=== PATIENT | female | born 1965 | race Caucasian/White ===

== ENCOUNTER 2023-02-26 20:48 | Emergency (ER) | payer BC, SELFPAY ==
[2023-02-26 20:50] VITALS: BP 89/58; PULSE 125; RESP 15; TEMP 36.3; O2SAT 98
[2023-02-26 21:01] VITALS: BP 89/58
--- NOTE | 2023-02-26 22:21 | EX.ED.DYSGE1 ---
HPI History of Present Illness Chief Complaint: General Illness Informant: patient and spouse/S.O. Onset/Context/Timing Onset: Today and Yesterday Context: Gradual Onset Timing: Continuous Current Severity: Mild Maximum Severity: Mild Narrative Narrative: 57-year-old female in August of last year was diagnosed with stage IV breast cancer metastases. She started chemotherapy about 13 weeks ago and is now getting it weekly. Her last treatment was last Saturday. She spoke in a week the last 2 days. Said she has been eating and drinking well. No diarrhea. No dysuria. No fever. No chest pain. Today her and her were out to dinner since he felt fine when she went to get up from dinner she got up felt lightheaded and weak. She went to exit the restaurant when she got outside she had episode of nausea and vomiting. Says she is feeling improved now but just generally weak. Prior similar symptoms: No Recent Illness/Hospitalization: No PFSH PFSH Medical History (Updated 02/27/23 @ 00:[address] Bari Cueva MD) Cancer Depression Former smoker GERD (gastroesophageal reflux disease) Home Medications bupropion HCl 150 mg 24 hr tablet, extended release 150 mg PO DAILY 02/26/23 [History Last Taken Unknown] doxycycline monohydrate 40 mg capsule,immediate - delay release (Oracea) 40 mg PO DAILY 02/26/23 [History Last Taken Unknown] gabapentin 100 mg capsule 600 mg PO DAILY 02/26/23 [History Last Taken Unknown] promethazine 25 mg tablet 25 mg PO DAILY 02/26/23 [History Last Taken Unknown] Allergy/AdvReac Type Severity Reaction Status Date / Time No Known Allergies Allergy Verified 02/26/23 21:02 Social History Smoking Status: Former smoker ROS ROS ED ROS Narrative Weakness. Nausea vomiting. Review of Systems ROS Unobtainable: Denies due to encephalopathy Constitutional Constitutional ED: Denies chills or fever(s) Eyes Eyes: Denies blurry vision ENT ENT ED: Denies ear pain Cardiovascular Cardiovascular: Denies chest pain Respiratory/Chest Respiratory/Chest: Denies cough or dyspnea Gastrointestinal Gastrointestinal: Reports nausea and vomiting; Denies abdominal pain, constipation, diarrhea or melena Genitourinary Genitourinary ED: Denies dysuria or hematuria Musculoskeletal Musculoskeletal: Denies arthralgias Integumentary Denies abscess Neurologic Neurologic: Denies headache(s) Psychiatric Psychiatric: Denies anxiety Endocrine Endocrinology: Denies cold intolerance Hematologic/Lymphatic Hematologic/Lymphatic: Reports none Allergic/Immunologic Allergic/Immunologic ED: Denies mouth swelling or tongue swelling EXAM Physical Exam Narrative Exam Narrative: Well-appearing 57-year-old female. Initial blood pressure was 89/58. She does not look septic or toxic. She is afebrile temperature 97.4. Her pulse ox is 98. Pulse is elevated 125. H EENT exam mild dry mucous membranes. Otherwise unremarkable. Neck nontender no JVD no lymphadenopathy. Lungs clear to auscultation bilaterally. Heart tachycardic rate about 115 no murmur. Chest wall nontender. Abdomen soft nontender. No peritoneal signs. Moving all 4 extremities. 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 Dorsi plantarflexion intact. Calves are nontender without edema. Back nontender. Neurologically she is awake and alert with no focal motor deficits. She is sitting upright in bed and appears comfortable. at bedside. Const Vital Signs: 02/26/23 20:50 02/26/23 21:01 Temperature 97.4 F L Temperature Source Oral Pulse Rate 125 H Respiratory Rate 15 Blood Pressure 89/58 L 89/58 L Blood Pressure Mean 68 68 Pulse Ox 98 Oxygen Delivery Method Room Air Positive well nourished and well developed; Negative for cachectic, contractures or unkempt General Appearance ED: well developed and NAD; Negative for unkempt, cachectic, contractures, cyanotic, diaphoretic or pallor Nutritional Appearance: Negative for cachectic HEENT Reports dry mucous membranes; Denies moist mucous membranes Negative for trauma or tenderness Mouth ED: Yes dry mucous membranes Mouth: dry mucous membranes Eyes EOMs intact bilaterally General Eye ED: Negative for pale conjunctiva, scleral icterus or other Neck no lymphadenopathy, supple and no JVD General: Negative for tenderness Resp normal respiratory effort and clear to auscultation bilaterally Effort and Inspection: Negative for retractions Auscultation: Negative for rales, rhonchi or wheezes Cardio regular rhythm, S1 normal heart sound, S2 normal heart sound and no murmurs; Negative for regular rate Rate: tachycardic GI normal to inspection, nondistended, normoactive bowel sounds, non-tender, non-distended and no masses Inspection: Negative for abdominal distention Auscultation: normoactive bowel sounds Palpation: soft; Negative for tender or guarding Back/Spine no CVA tenderness General Back: Negative for CVA tenderness Cervical Spine: Negative for cervical spine tenderness Thoracic Spine / Upper Back: Negative for thoracic spinal tenderness Lumbar Spine / Lower Back: Negative for lumbar spinal tenderness Extremity normal to inspection General Extremety ED: Negative for edema or tenderness General Extremity: Negative for edema Neuro oriented x3 and CN's II-XII intact bilaterally Sensorium / Orientation: alert; Negative for orientation impaired Motor Exam: strength 5/5 throughout; Negative for general weakness Psych mental status grossly normal Appearance: Negative for unkempt Attitude: No agitated Skin no rashes or lesions noted and no wounds General Skin Exam: Negative for jaundice or pallor Lesions: No lesion noted Rashes: No rashes noted Trauma: Negative for abrasion Wounds: Negative for wounds noted MDM MDM MDM Narrative Medical decision making narrative: 57-year-old Aries patient felt weak presents with hypotension. Recently has not had nausea and vomiting except one episode tonight. Has not had diarrhea. States she has been taking in p.o. fluids. Denies any infectious symptoms. No fever. No significant cough or shortness of breath. No abdominal pain. No dysuria. She will undergo work-up. This may be chemo related versus infectious etiology versus other. Exam is benign. Repeat exam patient doing well at 12:30 PM. She is feeling better after IV fluids. Her exam is unchanged and benign. Her blood pressures improved. Currently is 112/53. Her orthostatic vital signs are negative. Standing her blood pressure is 118/78 she did become tachycardic. She walked to the bathroom earlier. Without difficulty. She and I and her discussed her test results. She is comfortable being discharged home. I spoke to her oncologist, Dr. Tyrone Jha. Both he and I are comfortable with her being discharged home he will follow her up as an outpatient. She knows to return if worse. History & Record Review Discussion w/independent historian: Patient and Family Lab Data Attestation: I reviewed the patient's lab results. Lab results narrative: CBC shows a white count 9.3. H&H of 13 and 38. Platelets 329. Electrolytes show a gap at 9. BUN and creatinine are 25 and 1.1. Liver enzymes are unremarkable. Urinalysis shows no white or red cells. No nitrites. 2+ bacteria. This will not be treated. Lactic acid is normal at 1.6.Chest x-ray is unremarkable. Left sided med port. Labs: Laboratory Results - last 24 hr 02/26/23 02/26/23 02/26/23 23:15 23:20 23:20 WBC 9.3 RBC 3.84 L Hgb 13.1 Hct 38.3 MCV 99.7 H MCH 34.1 H MCHC 34.2 RDW Std Deviation 61.0 H RDW Coeff of Lila 17.0 H Plt Count 329 MPV 8.9 Immature Gran % (Auto) 1.900 H Neut % (Auto) 89.3 H Lymph % (Auto) 5.4 L [place] % (Auto) 2.8 Eos % (Auto) 0.3 Baso % (Auto) 0.3 Absolute Neuts (auto) 8.3 H Absolute Lymphs (auto) 0.50 L Nucleated RBC % 0.2 Differential Comment SCANNED Sodium 136 Potassium 4.9 Chloride 100 Carbon Dioxide 27.0 Anion Gap 9 BUN 25 H Creatinine 1.16 H Estim Creat Clear Calc 52.68 Est GFR (MDRD) Af Amer 61 Est GFR (MDRD) Non-Af 51 L BUN/Creatinine Ratio 21.6 H Glucose 167 H Lactic Acid Calcium 10.7 H Total Bilirubin 0.80 AST 34 ALT 66 H Alkaline Phosphatase 105 Troponin I High Sens 70 H Total Protein 7.8 Albumin 4.0 Globulin 3.8 Albumin/Globulin Ratio 1.1 Urine Color Yellow Urine Clarity Clear Urine pH 6.0 Ur Specific Blaine 1.025 Urine Protein 100 H Urine Glucose (UA) Normal Urine Ketones 5 H Urine Occult Blood Negative Urine Nitrite Negative Urine Bilirubin 1 H Urine Urobilinogen 1 H Ur Leukocyte Esterase 25 H Urine RBC 0 SEEN Urine WBC 0-5 SEEN Ur Squamous Epith Cells 0-5 SEEN Urine Bacteria 2+ Hyaline Casts 0-5 SEEN Urine Mucus 0 SEEN 02/26/23 23:20 WBC RBC Hgb Hct MCV MCH MCHC RDW Std Deviation RDW Coeff of Lila Plt Count MPV Immature Gran % (Auto) Neut % (Auto) Lymph % (Auto) [place] % (Auto) Eos % (Auto) Baso % (Auto) Absolute Neuts (auto) Absolute Lymphs (auto) Nucleated RBC % Differential Comment Sodium Potassium Chloride Carbon Dioxide Anion Gap BUN Creatinine Estim Creat Clear Calc Est GFR (MDRD) Af Amer Est GFR (MDRD) Non-Af BUN/Creatinine Ratio Glucose Lactic Acid 1.6 Calcium Total Bilirubin AST ALT Alkaline Phosphatase Troponin I High Sens Total Protein Albumin Globulin Albumin/Globulin Ratio Urine Color Urine Clarity Urine pH Ur Specific [place]aine Urine Protein Urine Glucose (UA) Urine Ketones Urine Occult Blood Urine Nitrite Urine Bilirubin Urine Urobilinogen Ur Leukocyte Esterase Urine RBC Urine WBC Ur Squamous Epith Cells Urine Bacteria Hyaline Casts Urine Mucus Radiography Chest X-Ray - ED: 1 View, Read by ED Physician, Read by Radiologist, Heart, Lungs, Mediastinum, Bony Structures, No Acute Disease and Chronic Changes Diagnostic Testing: Clinical Impression(s) from Imaging Studies Chest X-Ray 02/26/23 22:40 IMPRESSION: 1. Tip of the left Alqpzk-g-Teay catheter in the mid right atrium near the IVC. Consider retracting 4 cm if thought to be indicated. 2. No acute intrathoracic abnormality. Electronically Signed: Shayy Harman MD at 23:39 EDT , Chest x-ray, portable, single view shows no acute abnormality. Reviewed by myself and the radiologist. Left sided med port. Rhythm Strip Rhythm Strip: Sinus Tach Rate: 110 Ectopy: None EKG Initial EKG: Attestation: I personally reviewed and interpreted this EKG as follows: Interpretation: Sinus Rhythm and No Acute Injury Pattern Comments: Sinus tachycardia rate 110. No acute signs of OR, ischemia or dysrhythmia. Discharge Plan Triage Chief Complaint: General Illness ED Provider: Bari Cueva Dx/Rx/DC Orders Clinical Impression: Transient hypotension, Nausea & vomiting, History of breast cancer, History of cancer chemotherapy Instructions: Dehydration Prescriptions: No Action promethazine 25 mg tablet 25 mg PO DAILY Label Comments: take 1 tablet by mouth every 6 hours if needed for nausea gabapentin 100 mg capsule 600 mg PO DAILY Label Comments: take 1 capsule by mouth once daily at bedtime (TAKE 100MG CAPSULE... (REFER TO PRESCRIPTION NOTES). bupropion HCl 150 mg tablet extended release 24 hr 150 mg PO DAILY doxycycline monohydrate [Oracea] 40 mg Capsule,Ir - Delay Rel,Biphase 40 mg PO DAILY Primary Care Provider: Raphael Galvan Referrals: Raphael Galvan MD [Primary Care Provider] - Tyrone Jha DO [Med Staff - Active Staff] - 1-2 Days if not improving Activity Restrictions/Additional Instructions: Plenty of fluids and rest. Follow-up with Dr. Tyrone Jha. I spoke with him the night. Return if feeling worse. Disposition Disposition: Home, Self Care
--- NOTE | 2023-02-26 22:22 | EKG12_ITS ---
Test Reason : DYSRHYTHMIA Blood Pressure : / mmHG Vent. Rate : 110 BPM Atrial Rate : 110 BPM P-R Int : 144 ms QRS Dur : 070 ms QT Int : 338 ms P-R-T Axes : 057 027 066 degrees QTc Int : 457 ms Sinus tachycardia Otherwise normal ECG Confirmed by JESUS BUTLER, MARCELLO ([id number]), telecom manager SHANELLE RAMIREZ ([id number]) on 02/28/2023 8:57:32 AM Referred By: HERMAN Confirmed By:MARCELLO LEE MD
[2023-02-26 22:32] VITALS: BMI 32.1
--- NOTE | 2023-02-26 22:40 | RAD_ITS ---
EXAM: XR CHEST, 1 VIEW CLINICAL INDICATION: hypotension TECHNIQUE: Frontal view of the chest. COMPARISON: No relevant prior studies available. FINDINGS: LUNGS AND PLEURAL SPACES: Unremarkable. No consolidation or edema. No pneumothorax. No effusion. HEART: Unremarkable. Cardiac silhouette not enlarged. MEDIASTINUM: Central airways and mediastinal contour are unremarkable. BONES/JOINTS: Unremarkable. SOFT TISSUES: Unremarkable. TUBES, LINES AND DEVICES: There is a left jugular Jngjfw-w-Iaoa catheter, tip over the mid right atrium, estimated to be 2.5 cm superior to the atrial-IVC junction, mildly low in position, it could be retracted 4 cm for placement in the SVC-right atrial junction. RAD/Chest 1 View (Portable) IMPRESSION: 1. Tip of the left Doihtg-g-Gihs catheter in the mid right atrium near the IVC. Consider retracting 4 cm if thought to be indicated. 2. No acute intrathoracic abnormality. Electronically Signed: Shayy Harman MD at 23:39 EDT ,
[2023-02-26 23:32] LABS: Absolute Neutrophil Count 8.3 X10^3/uL (2.0-7.7); Basophil# 0.03 X10^3/uL; Basophil% 0.3 % (0-1); Eosinophil# 0.03 X10^3/uL; Eosinophils% 0.3 % (0-5); Hematocrit 38.3 % (37-47); Hemoglobin 13.1 g/dL (12.0-15.0); Lymphocyte % 5.4 % (19-41); Mean Corp Hgb Conc 34.2 g/dL (32-36); Mean Corpuscular Hgb 34.1 pg (27.0-32.0); Mean Corpuscular Volume 99.7 fL (81-99); Mean Platelet Vol. 8.9 fl (6.2-12.0); Monocyte# 0.26 X10^3/uL; Monocyte% 2.8 % (0-10); NRBC Flagged by Analyzer 0.2 % (0-5); Neutrophil # 8.25 X10^3/uL (2.7-7.7); Neutrophil % 89.3 % (47-70); POSITIVE DIFFERENTIAL YES; Platelet Count 329 K/mm3 (150-450); Red Blood Count 3.84 M/mm3 (4.2-5.4); White Blood Count 9.3 K/mm3 (4.4-11.0)
[2023-02-26 23:37] LABS: Differential Indicated SCAN CRITERIA MET
[2023-02-26] MEDS: 0.9% Normal Saline 1,000 ML 999 ML IV (23:39)
[2023-02-26 23:42] LABS: Mucous, Urine 0 SEEN /hpf (<or=2+); Red Blood Cells-Urine 0 SEEN /hpf (0-5)
[2023-02-26 23:47] LABS: Color, Urine Yellow (Yellow); Glucose, Dipstick Normal (Normal); Ketone-Dipstick 5 mg/dl (Negative); Leukocyte Esterase-Dipstick 25 /ul (Negative); Nitrite-Dipstick Negative (Negative); Occult Blood-Urine Negative /ul (Negative); Protein-Dipstick 100 mg/dl (Negative); Specific Gravity, Urine 1.025 (1.002-1.030); Urine Clarity Clear (Clear); Urine Urobilinogen 1 mg/dl (Normal)
[2023-02-26 23:51] LABS: Urine Bilirubin Dipstick 1 mg/dL (Negative)
[2023-02-26 23:53] LABS: Differential Comment SCANNED
[2023-02-26 23:56] LABS: ALB/GLOB Ratio 1.1 RATIO (0.9-2.4); AST(SGOT) 34 U/L (15-37); Alanine Aminotransfer ALT/SGPT 66 U/L (13-56); Alkaline Phosphatase 105 U/L (45-117); Anion Gap 9 (5-15); BUN 25 mg/dL (7-18); BUN/Creat Ratio 21.6 RATIO (10-20); Calcium,Total 10.7 mg/dL (8.5-10.1); Chloride 100 mmol/L (98-107); Creatinine, Serum 1.16 mg/dL (0.55-1.02); EST Glomerular Filtration Rate 51 mL/min (>60); Est Glom Filt Rate - Afr Amer 61 mL/min (>60); Estimated Creatinine Clearance 52.68 ml/min; Globulin 3.8 g/dL (2.2-4.2); Glucose 167 mg/dL (74-106); Potassium 4.9 mmol/L (3.5-5.1); Protein, Total 7.8 g/dL (6.4-8.2); Sodium Level 136 mmol/L (136-145); Troponin-I HS 70 pg/mL (3.0-54.0)
[2023-02-26 23:56] LABS: Bacteria 2+ /hpf (None Seen); Hyaline Cast 0-5 SEEN /lpf (0-5); Squamous Epithelial Cells - UA 0-5 SEEN /hpf (5-10); White Blood Cells 0-5 SEEN /hpf (0-5)
[2023-02-27 00:05] LABS: Lactic Acid 1.6 mmol/L (0.4-1.9)
[2023-02-27 00:47] VITALS: BP 109/65; BP 112/53; BP 118/78; PULSE 118; PULSE 96; PULSE 98
[2023-02-27 01:03] VITALS: BP 121/73; PULSE 94; RESP 16; O2SAT 98
== END 2023-02-27 01:05 | disposition home or self-care (01) ==
PROVIDERS: Emergency Provider Emergency Medicine; PCP Family Medicine; Visit Provider Emergency Medicine
DX: R11.2 Nausea with vomiting, unspecified (principal); R03.1 Nonspecific low blood-pressure reading; Z87.891 Personal history of nicotine dependence; Z85.3 Personal history of malignant neoplasm of breast; Z92.21 Personal history of antineoplastic chemotherapy; F32.A Depression, unspecified; Z79.899 Other long term (current) drug therapy
CPT/HCPCS: 71045; 80053; 81001; 83605; 84484; 85025; 93005; 99283; J7030; A4216

== ENCOUNTER 2023-03-21 11:54 | Emergency (ER) | payer BC, SELFPAY ==
[2023-03-21 11:56] VITALS: BP 117/76; PULSE 134; RESP 18; TEMP 36.2; O2SAT 99
--- NOTE | 2023-03-21 12:17 | CT_ITS ---
STUDY: CTA CHEST REASON FOR EXAM: Female, 57 years old. Stage IV breast cancer, dyspnea, elevated D-dimer -- Creatinine 0.71 on March 20 RADIATION DOSAGE (If Supplied By Facility): CTDIvol = ( 12.5 ) mGy, DLP = ( 465.84 ) mGycm TECHNIQUE: The examination was performed with the intravenous administration of IV 100mL Isovue-370. Post-processing of the angiographic images was performed, with multiplanar reformation and 3D reconstruction. Individualized dose optimization techniques were used for this CT. COMPARISON: None. FINDINGS: A left-sided Port-A-Cath is seen with the tip in the superior vena cava. Intraluminal filling defects are seen in branches of the right lower lobe pulmonary artery with pulmonary emboli. Normal thoracic aorta and visualized great vessels. There is no demonstrated aortic dissection. Normal heart and pericardium. Normal mediastinum. Normal hilar regions. Normal visualized trachea and bronchi. The lungs are well expanded. Mild degree of bibasilar atelectasis. Normal pleura. Normal chest wall structures. Bony metastasis involving the appendicular and axial skeletons. Fatty infiltration of the liver. CT/CTA Chest W/WO Contrast IMPRESSION: Pulmonary emboli in the right lower lobe pulmonary arterial branches. Bony metastasis. Electronically Signed: Avila Harvey MD at 13:26 EDT ,
--- NOTE | 2023-03-21 12:17 | ED.VIS.DYS ---
HPI History of Present Illness Chief Complaint: Shortness of Breath Detail of Chief Complaint: Shortness of breath and elevated D-dimer Informant: patient Onset/Context/Timing Onset: Weeks (2 to 3 weeks) Context: sudden Timing: Continuous and Waxes and wanes Quality: Positive for Dyspnea on exertion; Negative for Orthopnea, PND or Wheezing Current Severity: Mild Maximum Severity: Moderate Worsened by: Exertion; Not Worsened By Lying flat or Coughing Relieved by: Nothing Associated Symptoms Negative for cough, rhinorrhea, post nasal drip, ear pain, fever, sore throat, subjective, chills or sweats Chest Pain: Positive for None Narrative Narrative: Patient is a 57-year-old woman with stage IV breast cancer that has metastasized to bone. She is under the care of Dr. Fox. She was seen by nurse practitioner yesterday. Blood work revealed a normal BUN and creatinine. D-dimer was elevated even after correction for age. CBC was unremarkable and patient is not anemic. Patient does endorse thirst and dry mouth. She states she feels better after hydration. She was sent to the emergency room because of concern for pulmonary embolus because she is still tachycardic. PE Risk Factors: Positive for Cancer; Negative for OCP + Smoking + > 35, Prior DVT or PE, Recent immobilization, Recent surgery or Recent travel Prior similar symptoms: Yes Recent Illness/Hospitalization: No PFSH PFSH Medical History Cancer Depression Former smoker GERD (gastroesophageal reflux disease) Home Medications bupropion HCl 150 mg 24 hr tablet, extended release 150 mg PO DAILY 02/26/23 [History Last Taken Unknown] doxycycline monohydrate 40 mg capsule,immediate - delay release (Oracea) 40 mg PO DAILY 02/26/23 [History Last Taken Unknown] gabapentin 100 mg capsule 600 mg PO DAILY 02/26/23 [History Last Taken Unknown] promethazine 25 mg tablet 25 mg PO DAILY 02/26/23 [History Last Taken Unknown] apixaban 5 mg (74 tabs) tablets in a dose pack (Eliquis DVT-PE Treat 30D Start) 5 mg PO BID #74 tabs 03/21/23 [Rx Last Taken Unknown] Allergy/AdvReac Type Severity Reaction Status Date / Time No Known Allergies Allergy Verified 02/26/23 21:02 Social History (Updated 03/21/23 @ 12:[address] Arnol Hairston MD) household members: spouse Smoking Status: Former smoker substance use type: does not use ROS ROS ED Constitutional Constitutional ED: Denies chills, fever(s), sweats or weight loss Eyes Eyes: Denies blurry vision, change in vision or diplopia ENT ENT ED: Denies ear pain, rhinorrhea or sore throat Cardiovascular Cardiovascular: Reports racing heartbeat; Denies chest pain, orthopnea, palpitations or paroxysmal nocturnal dyspnea Respiratory/Chest Respiratory/Chest: Reports dyspnea and dyspnea on exertion; Denies cough, orthopnea or paroxysmal nocturnal dyspnea Gastrointestinal Gastrointestinal: Denies abdominal pain, constipation, diarrhea, melena, nausea or vomiting Genitourinary Genitourinary ED: Denies dysuria, hematuria or urinary frequency Musculoskeletal Musculoskeletal: Denies arthralgias, back pain, myalgias or neck pain Integumentary Denies rash Neurologic Neurologic: Denies headache(s) or paresthesias Psychiatric Psychiatric: Denies anxiety or depression Endocrine Endocrinology: Denies cold intolerance or heat intolerance Hematologic/Lymphatic Hematologic/Lymphatic: Denies easy bleeding or easy bruising EXAM Physical Exam Narrative Exam Narrative: Vital signs are remarkable for rapid heart rate. Patient not hypoxic. Const Vital Signs: 03/21/23 11:56 03/21/23 12:41 03/21/23 12:42 Temperature 97.1 F L Temperature Source Temporal Pulse Rate 134 H 102 H Respiratory Rate 18 16 Respiratory Effort Normal Non-Labored Respiratory Depth Normal Respiratory Pattern Normal Blood Pressure 117/76 126/78 H Blood Pressure Mean 89 94 Pulse Ox 99 97 Oxygen Delivery Method Room Air Room Air 03/21/23 13:11 Temperature Temperature Source Pulse Rate 104 H Respiratory Rate 15 Respiratory Effort Respiratory Depth Respiratory Pattern Blood Pressure 125/77 H Blood Pressure Mean 93 Pulse Ox 98 Oxygen Delivery Method Room Air Positive well nourished, well developed and obese General Appearance ED: well developed and NAD; Negative for pallor Nutritional Appearance: obese HEENT Reports dry mucous membranes HEENT Narrative: Head is normocephalic. Ears normal. TMs normal. Nares patent. Uvula is midline. Posterior pharynx is normal. atraumatic Mouth ED: Yes dry mucous membranes Mouth: dry mucous membranes Eyes PERRL and EOMs intact bilaterally General Eye ED: Negative for pale conjunctiva or scleral icterus Neck no lymphadenopathy, supple and no meningeal signs Resp normal respiratory effort and clear to auscultation bilaterally Cardio regular rhythm, S1 normal heart sound, S2 normal heart sound and no murmurs; Negative for regular rate Rate: tachycardic GI non-tender, non-distended and no masses Auscultation: normoactive bowel sounds Palpation: soft Back/Spine no CVA tenderness and normal to inspection Back/Spine Narrative: Well-healed midline incision over the lumbar area. Extremity normal to inspection General Extremety ED: Negative for edema or tenderness General Extremity: Negative for edema Neuro oriented x3, CN's II-XII intact bilaterally and no sensory deficits noted Betty Coma Scale: document GCS findings Spontaneous Obeys Commands Oriented 15 Sensorium / Orientation: alert Psych mental status grossly normal Skin no wounds and skin turgor normal General Skin Exam: Negative for jaundice or pallor MDM MDM MDM Narrative Medical decision making narrative: With history of metastatic breast cancer, tachycardia and complaint of shortness of breath with normal auscultatory exam concern patient has a PE. Pretest probability is high. Of note patient did have a D-dimer yesterday which was positive. Since she is not anemic and renal function is normal CTA of the chest was ordered. Clinically she still appears dehydrated. An additional liter of normal saline was ordered. Radiography Diagnostic Testing: Clinical Impression(s) from Imaging Studies Chest CTA 03/21/23 12:17 IMPRESSION: Pulmonary emboli in the right lower lobe pulmonary arterial branches. Bony metastasis. Electronically Signed: Avila Harvey MD at 13:26 EDT , Management Discussion w/another healthcare provider: [employer] [facility] (Dr. Tyrone Jha. Will discharge with prescription for Eliquis.) Treatment and Re-Evaluation :: Patient does have PE right lower lobe. Since she is seen by Dr. Tyrone Jha will page him and discuss appropriate anticoagulation options. She is hemodynamically stable and candidate for outpatient care. Discharge Plan Triage Chief Complaint: Shortness of Breath ED Provider: Arnol Hairston Dx/Rx/DC Orders Clinical Impression: Pulmonary embolus, Breast cancer metastasized to bone, Acute dehydration, Sinus tachycardia Instructions: Embolism Pulmonary Dc Prescriptions: New Eliquis DVT-PE Treat 30D Start 5 mg (74 tabs) tablets,dose pack 5 mg PO BID Qty: 74 0RF No Action promethazine 25 mg tablet 25 mg PO DAILY Label Comments: take 1 tablet by mouth every 6 hours if needed for nausea gabapentin 100 mg capsule 600 mg PO DAILY Label Comments: take 1 capsule by mouth once daily at bedtime (TAKE 100MG CAPSULE... (REFER TO PRESCRIPTION NOTES). bupropion HCl 150 mg tablet extended release 24 hr 150 mg PO DAILY doxycycline monohydrate [Oracea] 40 mg Capsule,Ir - Delay Rel,Biphase 40 mg PO DAILY Primary Care Provider: Raphael Galvan Referrals: Raphael Galvan MD [Primary Care Provider] - Activity Restrictions/Additional Instructions: Dr. Tyrone Jha's office will contact you for follow-up appointment Disposition Disposition: Home, Self Care
[2023-03-21 12:42] VITALS: BP 126/78; PULSE 102; RESP 16; O2SAT 97; BMI 33.1
[2023-03-21] MEDS: 0.9% Normal Saline 1,000 ML 1000 ML IV (12:43)
[2023-03-21 13:11] VITALS: BP 125/77; PULSE 104; RESP 15; O2SAT 98
[2023-03-21 14:41] VITALS: BP 119/77; PULSE 92; RESP 14; O2SAT 99
[2023-03-21] MEDS: APIXABAN 5 MG TABLET 10 MG PO (14:42)
== END 2023-03-21 14:57 | disposition home or self-care (01) ==
PROVIDERS: Emergency Provider Emergency Medicine; PCP Family Medicine; Visit Provider Emergency Medicine
DX: I26.99 Other pulmonary embolism without acute cor pulmonale (principal); C79.51 Secondary malignant neoplasm of bone; C50.919 Malignant neoplasm of unspecified site of unspecified female breast; E86.0 Dehydration; R00.0 Tachycardia, unspecified; E66.9 Obesity, unspecified; Z87.891 Personal history of nicotine dependence
CPT/HCPCS: 71275; 96360; 99285; J7030; Q9967

== ENCOUNTER → 2025-07-20 | Outpatient (CLI) | payer BC, SELFPAY ==
[2025-07-22 21:08] LABS: QNTFERON TB Mitogen Value > 10.00 IU/mL (.); QNTFERON TB Nil Value 0.04 IU/mL (.); QNTFERON TB1+ Ag Value 0.12 IU/mL (.); QNTFERON TB2+ Ag Value 0.15 IU/mL (.); QNTIFERON TB Positive Criteria Negative (Negative)
== END | disposition home or self-care (01) ==
PROVIDERS: PCP Family Medicine; Referring Provider Physician Assistant Medical; Visit Provider Physician Assistant Medical
DX: L40.0 Psoriasis vulgaris (principal)
CPT/HCPCS: 36415; 86480